=== PATIENT | male | born 1935 | race Caucasian/White ===

== ENCOUNTER → 2018-02-18 | Outpatient (REF) | payer MEDICARE, BC ==
[2018-02-18 20:54] LABS: ALBUMIN 4.2 GM/DL (3.2-5.2); ALBUMIN/GLOBULIN RATIO 1.83 (1.00-1.93); ALKALINE PHOSPHATASE 75 U/L (45-117); ALT/SGPT 25 U/L (12-78); ANION GAP 6 MEQ/L (8-16); AST/SGOT 18 U/L (7-37); BILIRUBIN,TOTAL 0.5 MG/DL (0.2-1.0); BLOOD UREA NITROGEN 26 MG/DL (7-18); CALCIUM LEVEL 9.2 MG/DL (8.8-10.2); CARBON DIOXIDE LEVEL 31 MEQ/L (21-32); CHLORIDE LEVEL 105 MEQ/L (98-107); CHOLESTEROL LEVEL 218 MG/DL (<200); CHOLESTEROL RISK RATIO 5.317 (<5); CREATININE FOR GFR 1.06 MG/DL (0.70-1.30); FREE T4 0.83 NG/DL (0.76-1.46); GLOMERULAR FILTRATION RATE > 60.0 (>35); GLUCOSE, FASTING 87 MG/DL (70-100); HDL CHOLESTEROL 41 MG/DL (>40); LDL CHOLESTEROL 145 MG/DL (<100); NON-HDL-C 177 MG/DL; POTASSIUM SERUM 4.8 MEQ/L (3.5-5.1); SODIUM LEVEL 142 MEQ/L (136-145); TOTAL PROTEIN 6.5 GM/DL (6.4-8.2); TRIGLYCERIDES LEVEL 162 MG/DL (<150)
[2018-02-18 21:21] LABS: TOTAL 25(OH) VITAMIN D 7.9 NG/ML (30.0-100.0)
== END ==
LOC: M SFHCADAM 15:03
DX: C91.90 Lymphoid leukemia, unspecified not having achieved remission (principal); I25.10 Atherosclerotic heart disease of native coronary artery without angina pectoris; I10 Essential (primary) hypertension; M19.90 Unspecified osteoarthritis, unspecified site; R63.5 Abnormal weight gain; Z68.39 Body mass index [BMI] 39.0-39.9, adult
CPT/HCPCS: 84443

== ENCOUNTER → 2018-09-17 | Outpatient (CLI) | payer MEDICARE, BC ==
[~2018-09-17] MED LIST: ACCU1TAB; AMBI10TA PO; ASPI81TA26 PO; ATOR1TAB19 PO; COLA100C5 PO; COUM2.5T17 PO; FOLI800T PO; FURO20TA2 PO; FURO40TA2 PO; LASI40TA; METO1TAB63 PO; PERC5TAB12 PO; PERCOCET PO; PROBCAP4 PO; PROT1TAB2 PO; QUIN10TA25 PO; QUIN1TAB PO; SODIUM PHOSPHATE PR; SPIR-10 PO; SPIRPOW; SUCR1TA PO; TYLENOL #3; [UNRECOGNIZED DRUG - CODE] PO; [UNRECOGNIZED DRUG - OTHER] PR; ferrous sulfate PD
--- NOTE | 2018-09-18 17:02 | SLEEPCENT ---
DATE OF PROCEDURE: 09/17/2018 ORDERED BY: HELGA Oconnor Nocturnal polysomnography was performed for the titration of pressure therapy in this patient with a clinical diagnosis of obstructive sleep apnea syndrome supported by home testing revealing a respiratory event index of 12.4. For testing the patient was fit with a [employer] Quattro Mirage full face mask of large size, 4 cm of water pressure were applied to the circuit and the light were extinguished. 7 hours and 17 minutes of data were reviewed. There were 306 minutes of sleep identified. Sleep latency was short at 5 minutes. Rapid eye movement (REM) latency was mildly prolonged at 147 minutes. Sleep architecture was good with four REM cycles. Overall sleep efficiency 71.6%. The electrocardiogram showed a sinus rhythm with an average heart rate of 58 beats per minute. EEG showed reasonably normal waveforms for awake and sleep. Respiratory events were fully palliated with continuous positive airway pressure (CPAP) at a pressure of +10. Some activity was seen in the limb leads, particularly early in the study. Limb movement arousal index was only 2.2. IMPRESSION: Obstructive sleep apnea syndrome (G47.33). RECOMMENDATIONS: Nightly use of pressure therapy 10 cm of water.
== END ==
LOC: M SLEEP 19:39
PROVIDERS: ATTEND Nurse Practitioner Family
DX: G47.33 Obstructive sleep apnea (adult) (pediatric) (principal)

== ENCOUNTER → 2018-11-10 | Outpatient (CLI) | payer MEDICARE, BC ==
--- NOTE | 2018-11-12 09:09 | SLEEPCENT ---
DATE OF PROCEDURE: 11/10/2018 ORDERED BY: Lillie Horton Nocturnal polysomnography was performed for evaluation of sleep physiology. 7 hours and 25 minutes of data were reviewed. There were 293 minutes of sleep identified. Sleep latency was short at 16.5 minutes. Rapid eye movement (REM) latency was normal at 75 minutes. Sleep architecture showed severe fragmentation. Overall sleep efficiency was 66.6%. There was a significant reduction in REM time. The patient's electrocardiogram showed a sinus rhythm with a conduction defect. Average heart rate was 58 beats per minute. Electroencephalogram (EEG) showed normal waveforms for awake and sleep. There were 230 respiratory events identified of 10 seconds in duration or greater for an apnea-hypopnea index of 47. Arousals from respiratory events occurred 21.9 times per hour and oxygen desaturations were seen into the 80s. There was some limb activity, but arousals from limb events were few. Snoring was noted over the entire study. IMPRESSION: Obstructive sleep apnea syndrome (G47.33). Apnea-hypopnea index of 47. RECOMMENDATION: The patient should be encouraged to return to the sleep disorder center for pressure therapy. In the interim, alcohol and sedative avoidance should be practiced and caution exercised during the operation of motor vehicles.
== END ==
LOC: M SLEEP 19:28
PROVIDERS: ATTEND Nurse Practitioner Family
DX: G47.33 Obstructive sleep apnea (adult) (pediatric) (principal)

== ENCOUNTER → 2019-11-05 | Outpatient (REF) | payer MEDICARE, BC, OTHER | LOC: M SFHCADAM 10:26 | PROVIDERS: ATTEND Physician Assistant | DX: Z53.9 Procedure and treatment not carried out, unspecified reason (principal); I10 Essential (primary) hypertension; E55.9 Vitamin D deficiency, unspecified; I25.10 Atherosclerotic heart disease of native coronary artery without angina pectoris ==

== ENCOUNTER → 2019-12-03 | Outpatient (CLI) | payer MEDICARE, BC, OTHER ==
[2019-12-03 18:02] LABS: HEMOGLOBIN 11.5 g/dl (13.5-17.5); MEAN CORPUSCULAR HEMOGLOBIN 31.4 pg (27.0-33.0); MEAN CORPUSCULAR HGB CONC 31.1 g/dl (32.0-36.5); MEAN CORPUSCULAR VOLUME 101.1 fl (80.0-96.0); PLATELET COUNT, AUTOMATED 136 10^3/uL (150-450); RED BLOOD COUNT 3.66 10^6/uL (4.30-6.10)
[2019-12-03 18:35] LABS: WHITE BLOOD COUNT 109.8 10^3/uL (4.0-10.0)
[2019-12-03 18:55] LABS: LYMPHOCYTES 99 % (16-44); NEUTROPHILS 1 % (28-66)
[2019-12-03 18:56] LABS: GIANT PLATELETS 1+; PLATELET ESTIMATE NORMAL (NORMAL); SMUDGE CELLS 4+
== END ==
LOC: M WUC 11:23
PROVIDERS: ATTEND Internal Medicine Hematology & Oncology
DX: C91.10 Chronic lymphocytic leukemia of B-cell type not having achieved remission (principal)

== ENCOUNTER → 2021-01-12 | Outpatient (REF) | payer MEDICARE, BC, OTHER ==
[~2021-01-12] MED LIST changes: +FOLI0.8T3 PO; -FOLI800T PO
[2021-01-12 17:49] LABS: ALBUMIN 4.1 GM/DL (3.2-5.2); ALT/SGPT 24 U/L (12-78); BILIRUBIN,TOTAL 0.6 MG/DL (0.2-1.0); BLOOD UREA NITROGEN 19 MG/DL (7-18); CALCIUM LEVEL 9.1 MG/DL (8.8-10.2); CARBON DIOXIDE LEVEL 28 MEQ/L (21-32); CHLORIDE LEVEL 105 MEQ/L (98-107); CREATININE FOR GFR 0.79 MG/DL (0.70-1.30); GLOMERULAR FILTRATION RATE > 60.0 (>35); GLUCOSE, FASTING 91 MG/DL (70-100); POTASSIUM SERUM 4.4 MEQ/L (3.5-5.1); SODIUM LEVEL 140 MEQ/L (136-145); TOTAL PROTEIN 6.1 GM/DL (6.4-8.2)
[2021-01-12 17:58] LABS: TOTAL 25(OH) VITAMIN D 22.6 NG/ML (30.0-100.0)
== END ==
LOC: M SFHCADAM 14:05
PROVIDERS: ATTEND Physician Assistant
DX: I25.10 Atherosclerotic heart disease of native coronary artery without angina pectoris (principal); I10 Essential (primary) hypertension; E55.9 Vitamin D deficiency, unspecified; Z79.899 Other long term (current) drug therapy
CPT/HCPCS: 80053; 82306; 90682; G0008

== ENCOUNTER → 2021-09-26 | Outpatient (CLI) | payer MEDICARE, BC, OTHER ==
[2021-09-26 13:10] LABS: HEMATOCRIT 36.3 % (42.0-52.0); HEMOGLOBIN 11.3 g/dl (13.5-17.5); MEAN CORPUSCULAR HGB CONC 31.1 g/dl (32.0-36.5); MEAN CORPUSCULAR VOLUME 102.8 fl (80.0-96.0); PLATELET COUNT, AUTOMATED 114 10^3/uL (150-450); RED BLOOD COUNT 3.53 10^6/uL (4.30-6.10)
[2021-09-26 13:17] LABS: WHITE BLOOD COUNT 140.7 10^3/uL (4.0-10.0)
[2021-09-26 13:47] LABS: ATYPICAL LYMPH 1 % (0-5); LYMPHOCYTES 95 % (16-44); NEUTROPHILS 4 % (28-66)
[2021-09-26 13:48] LABS: ANISOCYTOSIS 1+; OVALOCYTES 1+; PLATELET ESTIMATE DECREASED (NORMAL); SMUDGE CELLS 3+
[2021-09-26 13:54] LABS: ALT/SGPT 21 U/L (12-78); BLOOD UREA NITROGEN 18 MG/DL (7-18); CALCIUM LEVEL 8.9 MG/DL (8.8-10.2); CARBON DIOXIDE LEVEL 28 MEQ/L (21-32); CHLORIDE LEVEL 105 MEQ/L (98-107); CHOLESTEROL LEVEL 193 MG/DL (<200); CHOLESTEROL RISK RATIO 5.514 (<5); GLOMERULAR FILTRATION RATE > 60.0 (>35); GLUCOSE, FASTING 92 MG/DL (70-100); HDL CHOLESTEROL 35 MG/DL (>40); LDL CHOLESTEROL 132 MG/DL (<100); NON-HDL-C 158 MG/DL; POTASSIUM SERUM 4.3 MEQ/L (3.5-5.1); SODIUM LEVEL 138 MEQ/L (136-145); TRIGLYCERIDES LEVEL 132 MG/DL (<150)
== END ==
LOC: M ADAMS 10:48
PROVIDERS: ATTEND Internal Medicine Cardiovascular Disease
DX: I25.10 Atherosclerotic heart disease of native coronary artery without angina pectoris (principal); Z95.2 Presence of prosthetic heart valve; E78.2 Mixed hyperlipidemia

== ENCOUNTER → 2022-11-15 | Outpatient (CLI) | payer MEDICARE, BC, OTHER ==
[2022-11-15 13:15] LABS: HEMATOCRIT 32.1 % (42.0-52.0); HEMOGLOBIN 9.4 g/dl (13.5-17.5); MEAN CORPUSCULAR HEMOGLOBIN 31.6 pg (27.0-33.0); MEAN CORPUSCULAR HGB CONC 29.3 g/dl (32.0-36.5); MEAN CORPUSCULAR VOLUME 108.1 fl (80.0-96.0); PLATELET COUNT, AUTOMATED 108 10^3/uL (150-450); RED BLOOD COUNT 2.97 10^6/uL (4.30-6.10)
[2022-11-15 13:28] LABS: WHITE BLOOD COUNT 143.1 10^3/uL (4.0-10.0)
[2022-11-15 13:42] LABS: CPK CREATINE PHOSPHOKINASE 71 U/L (46-171)
[2022-11-15 13:43] LABS: ALBUMIN 3.8 G/DL (3.2-5.2); ALKALINE PHOSPHATASE 68 U/L (46-116); ALT/SGPT 15 U/L (7.0-40); AST/SGOT 12 U/L (<34); BILIRUBIN,TOTAL 0.7 MG/DL (0.3-1.2); BLOOD UREA NITROGEN 26 MG/DL (9-23); CALCIUM LEVEL 8.3 MG/DL (8.3-10.6); CARBON DIOXIDE LEVEL 26 MMOL/L (20-31); CHLORIDE LEVEL 109 MMOL/L (98-107); CHOLESTEROL LEVEL 132 MG/DL (<200); CHOLESTEROL RISK RATIO 2.16 (<5); CREATININE FOR GFR 0.78 MG/DL (0.70-1.30); GLOMERULAR FILTRATION RATE > 60.0 (>35); GLUCOSE, FASTING 97 MG/DL (74-106); POTASSIUM SERUM 4.2 MMOL/L (3.5-5.1); SODIUM LEVEL 142 MMOL/L (136-145); TOTAL PROTEIN 5.6 G/DL (5.7-8.2); TRIGLYCERIDES LEVEL 80 MG/DL (<150)
== END ==
LOC: M WUC 09:59
PROVIDERS: ATTEND Physician Assistant
DX: I25.10 Atherosclerotic heart disease of native coronary artery without angina pectoris (principal)

== ENCOUNTER → 2023-01-18 | Outpatient (REF) | payer MEDICARE, BC, OTHER ==
[2023-01-18 19:51] LABS: HEMATOCRIT 37.6 % (42.0-52.0); MEAN CORPUSCULAR HEMOGLOBIN 32.6 pg (27.0-33.0); MEAN CORPUSCULAR HGB CONC 31.9 g/dl (32.0-36.5); MEAN CORPUSCULAR VOLUME 102.2 fl (80.0-96.0); PLATELET COUNT, AUTOMATED 100 10^3/uL (150-450); RED BLOOD COUNT 3.68 10^6/uL (4.30-6.10)
[2023-01-18 20:01] LABS: WHITE BLOOD COUNT 54.8 10^3/uL (4.0-10.0)
== END ==
LOC: M LAB REF 18:59
PROVIDERS: ATTEND Internal Medicine Hematology & Oncology
DX: C91.10 Chronic lymphocytic leukemia of B-cell type not having achieved remission (principal)

== ENCOUNTER → 2023-02-11 | Outpatient (REF) | payer MEDICARE, BC, OTHER ==
[2023-02-11 17:56] LABS: HEMATOCRIT 42.7 % (42.0-52.0); HEMOGLOBIN 13.4 g/dl (13.5-17.5); MEAN CORPUSCULAR HEMOGLOBIN 31.7 pg (27.0-33.0); MEAN CORPUSCULAR HGB CONC 31.4 g/dl (32.0-36.5); MEAN CORPUSCULAR VOLUME 100.9 fl (80.0-96.0); PLATELET COUNT, AUTOMATED 122 10^3/uL (150-450); RED BLOOD COUNT 4.23 10^6/uL (4.30-6.10)
[2023-02-11 19:51] LABS: WHITE BLOOD COUNT 53.7 10^3/uL (4.0-10.0)
== END ==
LOC: M LABWUC 16:20
PROVIDERS: ATTEND Internal Medicine Hematology & Oncology
DX: C91.10 Chronic lymphocytic leukemia of B-cell type not having achieved remission (principal)

== ENCOUNTER → 2023-03-06 | Outpatient (REF) | payer MEDICARE, BC, OTHER ==
[2023-03-06 17:59] LABS: HEMATOCRIT 41.6 % (42.0-52.0); HEMOGLOBIN 13.2 g/dl (13.5-17.5); MEAN CORPUSCULAR HEMOGLOBIN 30.8 pg (27.0-33.0); MEAN CORPUSCULAR HGB CONC 31.7 g/dl (32.0-36.5); PLATELET COUNT, AUTOMATED 123 10^3/uL (150-450); RED BLOOD COUNT 4.29 10^6/uL (4.30-6.10)
[2023-03-06 18:25] LABS: WHITE BLOOD COUNT 44.2 10^3/uL (4.0-10.0)
== END ==
LOC: M LABDRWAD 17:19
PROVIDERS: ATTEND Internal Medicine Hematology & Oncology
DX: C91.10 Chronic lymphocytic leukemia of B-cell type not having achieved remission (principal)

== ENCOUNTER → 2023-09-30 | Outpatient (REF) | payer MEDICARE, OTHER ==
[2023-09-30 18:17] LABS: BASO # 0.1 10^3/uL (0.0-0.2); BASO % 0.3 % (0.0-1.0); EOS # 0.2 10^3/uL (0.0-0.5); EOS % 0.5 % (0.0-3.0); HEMATOCRIT 43.5 % (42.0-52.0); HEMOGLOBIN 13.7 g/dl (13.5-17.5); LYMPH # 20.9 10^3/uL (1.5-5.0); LYMPH % 75.4 % (24.0-44.0); MEAN CORPUSCULAR HEMOGLOBIN 30.8 pg (27.0-33.0); MEAN CORPUSCULAR HGB CONC 31.5 g/dl (32.0-36.5); MEAN CORPUSCULAR VOLUME 97.8 fl (80.0-96.0); MONO # 0.7 10^3/uL (0.0-0.8); MONO % 2.7 % (2.0-8.0); NEUTROPHILS # 5.8 10^3/uL (1.5-8.5); NEUTROPHILS % 20.9 % (36.0-66.0); PLATELET COUNT, AUTOMATED 191 10^3/uL (150-450); RED BLOOD COUNT 4.45 10^6/uL (4.30-6.10); WHITE BLOOD COUNT 27.7 10^3/uL (4.0-10.0)
== END ==
LOC: M LABWUC 16:30
PROVIDERS: ATTEND Internal Medicine Hematology & Oncology
DX: C91.10 Chronic lymphocytic leukemia of B-cell type not having achieved remission (principal)

== ENCOUNTER → 2024-01-28 | Outpatient (REF) | payer MEDICARE, BC, OTHER | LOC: M SFHCADAM 15:52 | PROVIDERS: ATTEND Physician Assistant | DX: I25.10 Atherosclerotic heart disease of native coronary artery without angina pectoris (principal); C91.90 Lymphoid leukemia, unspecified not having achieved remission; I10 Essential (primary) hypertension; Z95.3 Presence of xenogenic heart valve; E55.9 Vitamin D deficiency, unspecified ==

== ENCOUNTER → 2024-11-04 | Outpatient (REF) | payer MEDICARE, BC, OTHER ==
[~2024-11-04] MED LIST changes: -AMBI10TA PO; +ZOLP-533 PO
[2024-11-04 18:51] LABS: BASO # 0.1 10^3/uL (0.0-0.2); BASO % 0.2 % (0.0-1.0); EOS # 0.2 10^3/uL (0.0-0.5); EOS % 0.8 % (0.0-3.0); LYMPH # 14.3 10^3/uL (1.5-5.0); LYMPH % 66.5 % (24.0-44.0); MONO # 0.7 10^3/uL (0.0-0.8); MONO % 3.3 % (2.0-8.0); NEUTROPHILS # 6.2 10^3/uL (1.5-8.5); NEUTROPHILS % 28.9 % (36.0-66.0); PLATELET COUNT, AUTOMATED 113 10^3/uL (150-450)
== END ==
LOC: M LABDRWAD 17:58
PROVIDERS: ATTEND Internal Medicine Hematology & Oncology
DX: C91.10 Chronic lymphocytic leukemia of B-cell type not having achieved remission (principal)

== ENCOUNTER → 2024-12-24 | Outpatient (CLI) | payer MEDICARE, BC, OTHER ==
[~2024-12-24] MED LIST changes: -FOLI0.8T3 PO; +FOLI800T5 PO
[2024-12-24 13:41] LABS: BASO # 0.1 10^3/uL (0.0-0.2); BASO % 0.2 % (0.0-1.0); EOS # 0.1 10^3/uL (0.0-0.5); EOS % 0.6 % (0.0-3.0); LYMPH # 13.8 10^3/uL (1.5-5.0); LYMPH % 65.6 % (24.0-44.0); MONO # 0.7 10^3/uL (0.0-0.8); MONO % 3.3 % (2.0-8.0); NEUTROPHILS # 6.3 10^3/uL (1.5-8.5); NEUTROPHILS % 30.0 % (36.0-66.0); PLATELET COUNT, AUTOMATED 139 10^3/uL (150-450)
[2024-12-24 14:09] LABS: ALT/SGPT 20.0 U/L (7.0-40); AST/SGOT 20.0 U/L (<34); CALCIUM LEVEL 8.8 MG/DL (8.3-10.6); CARBON DIOXIDE LEVEL 27.0 MMOL/L (20-31); CHLORIDE LEVEL 108.0 MMOL/L (98-107); CREATININE FOR GFR 0.91 MG/DL (0.70-1.30); GLOMERULAR FILTRATION RATE 81.1 (>35); POTASSIUM SERUM 4.6 MMOL/L (3.5-5.1); SODIUM LEVEL 145.0 MMOL/L (136-145)
== END ==
LOC: M LAB 12:14
PROVIDERS: ATTEND Physician Assistant
DX: C91.10 Chronic lymphocytic leukemia of B-cell type not having achieved remission (principal)

== ENCOUNTER → 2025-01-28 | Outpatient (REF) | payer MEDICARE, BC, OTHER ==
[2025-01-28 14:40] LABS: ALT/SGPT 17.0 U/L (7.0-40); AST/SGOT 15.0 U/L (<34); CALCIUM LEVEL 8.8 MG/DL (8.3-10.6); CARBON DIOXIDE LEVEL 27.0 MMOL/L (20-31); CHLORIDE LEVEL 108.0 MMOL/L (98-107); CHOLESTEROL LEVEL 143.0 MG/DL (<200); CHOLESTEROL RISK RATIO 2.98 (<5); CREATININE FOR GFR 1.11 MG/DL (0.70-1.30); GLOMERULAR FILTRATION RATE 63.9 (>35); LDL CHOLESTEROL 73.3 MG/DL (<100); NON-HDL-C 95.1 MG/DL; POTASSIUM SERUM 4.9 MMOL/L (3.5-5.1); SODIUM LEVEL 144.0 MMOL/L (136-145); TRIGLYCERIDES LEVEL 109.0 MG/DL (<150)
[2025-01-28 14:42] LABS: PLATELET COUNT, AUTOMATED 123 10^3/uL (150-450)
[2025-01-28 14:43] LABS: FREE T4 0.96 NG/DL (0.89-1.76)
[2025-01-28 14:44] LABS: TOTAL 25(OH) VITAMIN D 9.6 NG/ML (20.0-100.0)
[2025-01-28 15:10] LABS: ATYPICAL LYMPH 21 % (0-5); LYMPHOCYTES 53 % (16-44); MONOCYTES 4 % (0-5); NEUTROPHILS 22 % (28-66)
[2025-01-28 15:20] LABS: PLATELET ESTIMATE DECREASED (NORMAL)
== END ==
LOC: M SFHCADAM 08:47
PROVIDERS: ATTEND Physician Assistant
DX: I25.10 Atherosclerotic heart disease of native coronary artery without angina pectoris (principal); C91.90 Lymphoid leukemia, unspecified not having achieved remission; I10 Essential (primary) hypertension; Z95.3 Presence of xenogenic heart valve; E55.9 Vitamin D deficiency, unspecified